=== PATIENT | male | born 1990 | race Caucasian/White ===

== ENCOUNTER 2016-11-29 17:24 | Emergency (ER) | payer SELFPAY ==
[2016-11-29 17:31] VITALS: TEMP 98.3; BMI 44.9
--- NOTE | 2016-11-29 17:33 | PDOC ---
Rapid Medical Evaluation Time Seen by Provider: 11/29/16 17:27 Medical Evaluation: Allergies Allergy/AdvReac Type Severity Reaction Status Date / Time No Known Allergies Allergy Verified 11/29/16 17:27 03 17:27 I have performed a brief in-person evaluation of this patient. The patient presents with a chief complaint of: lower abd pain after daughter jumped on his stomach. Pt with recent dx of hernia. Pertinent physical exam findings: vss. no palpable hernia. tenderness over rlq I have ordered the following: cbc, comp, ua The patient will proceed to the ED for further evaluation.
[2016-11-29 18:03] LABS: BASOPHIL 0.8 % (0-2.0); EOSINOPHIL 3.2 % (0-4.5); MCH 29.3 pg (25.7-33.7); MCHC 33.8 g/dl (32.0-35.9); MEAN CELL VOLUME 86.7 fl (80-96); MEAN PLT VOLUME 7.9 fl (7.5-11.1); NEUTROPHILS 53.5 % (42.8-82.8); PLATELET COUNT 290 K/MM3 (134-434); RDW 13.9 % (11.9-15.9)
--- NOTE | 2016-11-29 18:09 | PDOC ---
History of Present Illness <Leandro Ayala - Last Filed: 11/29/16 18:09> - History of Present Illness Initial Comments: 11/29/16 18:19 Patient is a 26 year old female with significant medical hx of umbilical hernia who is presenting to the ED with abdominal pain since yesterday. Patient complains of RLQ pain that began yesterday after his daughter jumped on him. He states that his daughter jumped and landed on his stomach with her knees. The patient endorses pain exacerbation with movement, but also states that it is always present at rest. Denies fever, chills, nausea, vomiting, diarrhea, urinary changes, and hx of abdominal surgeries. NDKA. <Spring Ortiz - Last Filed: 11/29/16 18:26> <Gerri Chan - Last Filed: 11/29/16 22:06> - General Chief Complaint: Pain Stated Complaint: ABD PAIN Time Seen by Provider: 11/29/16 17:27 Past History - Past Medical History Asthma: Yes Diabetes: Yes (borderline diabetic, on no meds) Hypercholesterolemia: Yes Other medical history: abd hernia - Psycho/Social/Smoking Cessation Hx Anxiety: No Suicidal Ideation: No Smoking Status: Yes Smoking History: Current every day smoker Have you smoked in the past 12 months: Yes Number of Cigarettes Smoked Daily: 4 Information on smoking cessation initiated: Yes 'Breaking Loose' booklet given: 11/29/16 Hx Alcohol Use: No Drug/Substance Use Hx: No Substance Use Type: None <Leandro Ayala - Last Filed: 11/29/16 18:09> <Spring Ortiz - Last Filed: 11/29/16 18:26> <Gerri Chan - Last Filed: 11/29/16 22:06> - Past Medical History Allergies/Adverse Reactions: Allergies Allergy/AdvReac Type Severity Reaction Status Date / Time No Known Allergies Allergy Verified 11/29/16 17:27 Home Medications: Ambulatory Orders NK [No Known Home Medication] 11/29/16 Review of Systems - Review of Systems Comments:: 11/29/16 18:22 GENERAL/CONSTITUTIONAL: No fever or chills. No weakness. HEAD, EYES, EARS, NOSE AND THROAT: No change in vision. No ear pain or discharge. No sore throat. CARDIOVASCULAR: No chest pain or shortness of breath. RESPIRATORY: No cough, wheezing, or hemoptysis. GASTROINTESTINAL: RLQ pain. No nausea, vomiting, diarrhea or constipation. GENITOURINARY: No dysuria, frequency, or change in urination. MUSCULOSKELETAL: No joint or muscle swelling or pain. No neck or back pain. SKIN: No rash NEUROLOGIC: No headache, vertigo, loss of consciousness, or change in strength/ sensation. <Spring Ortiz - Last Filed: 11/29/16 18:26> *Physical Exam - Vital Signs Last Vital Signs Temp Pulse Resp BP Pulse Ox 98.3 F 88 18 125/64 98 11/29/16 17:29 11/29/16 17:29 11/29/16 17:29 11/29/16 17:29 11/29/16 17:29 <Leandro Ayala - Last Filed: 11/29/16 18:09> - Vital Signs Last Vital Signs Temp Pulse Resp BP Pulse Ox 98.3 F 88 18 125/64 98 11/29/16 17:29 11/29/16 17:29 11/29/16 17:29 11/29/16 17:29 11/29/16 17:29 - Physical Exam Comments: 11/29/16 18:22 GENERAL: Morbidly obese. Awake, alert, and fully oriented, in no acute distress HEAD: No signs of trauma EYES: PERRLA, EOMI, sclera anicteric, conjunctiva clear ENT: Auricles normal inspection, hearing grossly normal, nares patent, oropharynx clear without exudates. Moist mucosa NECK: Normal ROM, supple, no lymphadenopathy, JVD, or masses LUNGS: Breath sounds equal, clear to auscultation bilaterally. No wheezes, and no crackles HEART: Regular rate and rhythm, normal S1 and S2, no murmurs, rubs or gallops ABDOMEN: Soft, tender at RLQ with Mcburneys point tenderness. No peritoneal signs. Normoactive bowel sounds. No guarding, no rebound. No masses EXTREMITIES: Normal range of motion, no edema. No clubbing or cyanosis. No cords, erythema, or tenderness NEUROLOGICAL: Cranial nerves II through XII grossly intact. Normal speech, normal gait SKIN: Warm, Dry, normal turgor, no rashes or lesions noted. ENDOCRINE: No increased thirst. No abnormal weight change. HEMATOLOGIC/LYMPHATIC: No anemia, easy bleeding, or history of blood clots. ALLERGIC/IMMUNOLOGIC: No hives or skin allergy. <Spring Ortiz - Last Filed: 11/29/16 18:26> - Vital Signs Last Vital Signs Temp Pulse Resp BP Pulse Ox 98.3 F 88 18 125/64 98 11/29/16 17:29 11/29/16 17:29 11/29/16 17:29 11/29/16 17:29 11/29/16 17:29 <Gerri Chan - Last Filed: 11/29/16 22:06> ED Treatment Course - LABORATORY CBC & Chemistry Diagram: 11/29/16 17:40 11/29/16 17:40 - ADDITIONAL ORDERS Additional order review: 11/29/16 17:40 RBC 4.86 MCV 86.7 MCHC 33.8 RDW 13.9 MPV 7.9 Neutrophils % 53.5 Lymphocytes % 32.3 Monocytes % 10.2 Eosinophils % 3.2 Basophils % 0.8 <Leandro Ayala - Last Filed: 11/29/16 18:09> - LABORATORY CBC & Chemistry Diagram: 11/29/16 17:40 11/29/16 17:40 - ADDITIONAL ORDERS Additional order review: 11/29/16 17:40 RBC 4.86 MCV 86.7 MCHC 33.8 RDW 13.9 MPV 7.9 Neutrophils % 53.5 Lymphocytes % 32.3 Monocytes % 10.2 Eosinophils % 3.2 Basophils % 0.8 <Spring Ortiz - Last Filed: 11/29/16 18:26> - LABORATORY CBC & Chemistry Diagram: 11/29/16 17:40 11/29/16 17:40 - ADDITIONAL ORDERS Additional order review: Laboratory Results 11/29/16 11/29/16 11/29/16 20:30 17:40 17:40 Sodium 141 Potassium 4.4 Chloride 105 Carbon Dioxide 32 Anion Gap 4 L BUN 16 Creatinine 1.0 Creat Clearance w eGFR > 60 Random Glucose 116 H Calcium 8.9 Total Bilirubin 0.4 AST 30 ALT 64 Alkaline Phosphatase 85 Total Protein 7.1 Albumin 3.6 Lipase 74 Urine Color Yellow Urine Appearance Cloudy Urine pH 7.0 Ur Specific Jermyn 1.018 Urine Protein Negative Urine Glucose (UA) Negative Urine Ketones Negative Urine Blood Negative Urine Nitrite Negative Urine Bilirubin Negative Urine Urobilinogen Negative Ur Leukocyte Esterase Negative 11/29/16 17:40 RBC 4.86 MCV 86.7 MCHC 33.8 RDW 13.9 MPV 7.9 Neutrophils % 53.5 Lymphocytes % 32.3 Monocytes % 10.2 Eosinophils % 3.2 Basophils % 0.8 - Medications Given in the ED: ED Medications Discontinued Medications Generic Name Dose Route Start Last Admin Trade Name Lizzie PRN Reason Stop Dose Admin Ondansetron HCl 4 mg 11/29/16 18:17 11/29/16 18:34 Zofran Odt - SL 11/29/16 18:18 4 mg ONCE ONE Administration Oxycodone/Acetaminophen 1 combo 11/29/16 18:17 11/29/16 18:34 Percocet 5/325 - PO 11/29/16 18:18 1 combo ONCE ONE Administration <Gerri Chan - Last Filed: 11/29/16 22:06> Medical Decision Making - Medical Decision Making 11/29/16 18:26 Patient will be turned over to overnight physician. <Spring Ortiz - Last Filed: 11/29/16 18:26> - Medical Decision Making 11/29/16 22:03 Pt was signed out to me; labs normal; CT abdomen/pelvis unchanged from previous. Pt will be sent home. Follow with PMD and follow with GI, as needed. <Gerri Chan - Last Filed: 11/29/16 22:06> *DC/Admit/Observation/Transfer - Attestations Physician Attestion: 11/29/16 18:09 I, Dr. Leandro Ayala, attest that this document has been prepared under my direction and personally reviewed by me in its entirety. I further attest, that it accurately reflects all work, treatment, procedures and medical decision -making performed by me. <Leandro Ayala - Last Filed: 11/29/16 18:09> - Attestations Scribe Attestion: 11/29/16 18:25 Documentation prepared by Spring Ortiz, acting as medical office worker for Leandro Ayala MD. <Spring Ortiz - Last Filed: 11/29/16 18:26> - Discharge Dispostion Admit: No <Gerri Chan - Last Filed: 11/29/16 22:06> Diagnosis at time of Disposition: Abdominal pain - Discharge Dispostion Disposition: HOME Condition at time of disposition: Stable - Referrals Referrals: Fadia Turner [Primary Care Provider] - - Patient Instructions Printed Discharge Instructions: DI for Abdominal Pain-Adult, DI for Acute Abdomen
[2016-11-29] MEDS ORDERED: OXYCODONE/APAP 5/325MG COMBO TABLET PO ONE (18:17)
[2016-11-29] MEDS ORDERED: ONDANSETRON *ODT* 4 MG TABLET SL ONE (18:17)
[2016-11-29] MEDS ORDERED: OXYCODONE/APAP 5/325MG COMBO TABLET ONE (18:20)
[2016-11-29] MEDS ORDERED: ONDANSETRON *ODT* 4 MG TABLET ONE (18:21)
[2016-11-29 18:27] LABS: ALBUMIN 3.6 g/dl (3.4-5.0); ALK PHOS 85 U/L (45-117); ANION GAP 4 (8-16); BILIRUBIN,TOTAL 0.4 mg/dL (0.2-1.0); CALCIUM 8.9 mg/dL (8.5-10.1); CO2 32 mmol/L (21-32); GLUCOSE,RANDOM 116 mg/dL (74-106); SGOT/AST 30 U/L (15-37); SGPT/ALT 64 U/L (12-78); TOT PROT 7.1 g/dl (6.4-8.2)
[2016-11-29 20:44] LABS: URINE APPEARANCE CLOUDY; URINE BILIRUBIN NEGATIVE (NEGATIVE); URINE BLOOD NEGATIVE (NEGATIVE); URINE COLOR YELLOW; URINE GLUCOSE (UA) NEGATIVE (NEGATIVE); URINE KETONE NEGATIVE (NEGATIVE); URINE LEUK ESTERASE NEGATIVE (NEGATIVE); URINE NITRITE NEGATIVE (NEGATIVE); URINE PROTEIN NEGATIVE (NEGATIVE); URINE UROBILINOGEN NEGATIVE E.U./dl (0.2-1.0)
[2016-11-29 22:21] VITALS: BP 122/66; PULSE 70
== END 2016-11-29 22:21 | disposition home or self-care (01) ==
LOC: JER 17:24
DX: R10.31 Right lower quadrant pain (principal); W50.0XXA Accidental hit or strike by another person, initial encounter; Y93.89 Activity, other specified; Y92.018 Other place in single-family (private) house as the place of occurrence of the external cause; E11.9 Type 2 diabetes mellitus without complications; J45.909 Unspecified asthma, uncomplicated; E78.00 Pure hypercholesterolemia, unspecified; K42.9 Umbilical hernia without obstruction or gangrene
CPT/HCPCS: 36415; 74177-TC; 80053; 81003; 83690; 85025; 99283-25; Q9967